=== PATIENT | female | born 1985 | race Two or more races ===

== ENCOUNTER → 2017-03-13 | Outpatient (CLI) | payer SELFPAY | END | disposition home or self-care (01) | LOC: RAD 10:00 | DX: O43.192 Other malformation of placenta, second trimester (principal); O28.3 Abnormal ultrasonic finding on antenatal screening of mother; Z3A.21 21 weeks gestation of pregnancy | CPT/HCPCS: 76811 ==

== ENCOUNTER 2017-07-21 05:38 | Inpatient (IN) | payer OTHER ==
[~2017-07-21] VITALS: Ht 157.5 cm; Wt 68.5 kg
[~2017-07-21 05:38] MED LIST: PRENATAL TABLE1 EACH PO
[2017-07-21 06:14] VITALS: BP 116/69
[2017-07-21 06:40] LABS: BASOPHIL (%) 0.3 % (0-1); EOSINOPHIL (%) 0.5 % (0-5); EOSINOPHIL COUNT 0.1 K/uL (0-0.3); HEMATOCRIT 31.2 % (36.0-46.0); IMMATURE GRANULOCYTE (%) 2.5 % (0.0-0.7); LYMPHOCYTE (%) 21.6 % (15-42); LYMPHOCYTE COUNT 2.4 K/uL (1.0-2.8); MCH 25.3 PG (29.0-34.0); MCHC 32.1 G/DL (30.0-36.0); MCV 78.8 FL (83-99); MONOCYTE (%) 9.1 % (3-12); NEUTROPHIL COUNT 7.4 K/uL (1.8-6.4); PLATELET COUNT 225 K/uL (156-360); RBC DIS.WIDTH-CV 13.8 % (11.8-14.6); RBC DIS.WIDTH-SD 39.2 % (39-53); RED BLOOD COUNT 3.96 M/uL (3.80-5.20); WHITE BLOOD COUNT 11.2 K/uL (4.1-10.2)
[2017-07-21 20:03] VITALS: BP 98/57
[2017-07-21 23:15] VITALS: BP 120/67
[2017-07-22 03:19] VITALS: BP 118/67
[2017-07-22 07:00] LABS: BASOPHIL (%) 0.1 % (0-1); EOSINOPHIL (%) 0.2 % (0-5); LYMPHOCYTE (%) 12.8 % (15-42); LYMPHOCYTE COUNT 1.9 K/uL (1.0-2.8); MCH 25.2 PG (29.0-34.0); MCHC 31.6 G/DL (30.0-36.0); MCV 79.6 FL (83-99); MONOCYTE COUNT 1.3 K/uL (0-0.8); NEUTROPHIL (%) 76.9 % (45-76); NEUTROPHIL COUNT 11.5 K/uL (1.8-6.4); NRBC (%) 0.1 /100 WBC (0-0); PLATELET COUNT 215 K/uL (156-360); RBC DIS.WIDTH-CV 13.9 % (11.8-14.6); RBC DIS.WIDTH-SD 40.2 % (39-53); WHITE BLOOD COUNT 14.9 K/uL (4.1-10.2)
[2017-07-22 07:11] LABS: HEMOGLOBIN 7.9 G/DL (11.9-15.5); RED BLOOD COUNT 3.14 M/uL (3.80-5.20)
[2017-07-22 07:13] VITALS: BP 111/61
[2017-07-22 10:53] VITALS: BP 118/61
[2017-07-22 15:24] VITALS: BP 108/59
[2017-07-22 19:54] VITALS: BP 112/65
[2017-07-23 03:46] VITALS: BP 99/53
[2017-07-23 07:24] VITALS: BP 103/61
[2017-07-23 12:17] VITALS: BP 127/57
[2017-07-23 14:47] VITALS: BP 117/56
[2017-07-24 08:32] VITALS: BP 104/59
[2017-07-24] MEDS ORDERED: IBUPROFEN800 MG PO (09:13)
[2017-07-24] MEDS ORDERED: FERROUS SULFAT325 MG PO (09:13)
[2017-07-24] MEDS ORDERED: NORCO 5/3251 TABLET PO (09:16)
== END 2017-07-24 16:00 | disposition home or self-care (01) | DRG 766 ==
LOC: 2WEST 05:38 → 2SOUTH 14:09 → 2WEST 07-24 16:00
PROVIDERS: Obstetrics & Gynecology
PROC: 10D00Z1 Extraction of Products of Conception, Low, Open Approach (ICD-10-PCS; principal; 2017-07-21)
DX: O34.211 Maternal care for low transverse scar from previous cesarean delivery (principal); O24.420 Gestational diabetes mellitus in childbirth, diet controlled; O99.02 Anemia complicating childbirth; D50.9 Iron deficiency anemia, unspecified; Z91.11 Patient's noncompliance with dietary regimen; Z3A.39 39 weeks gestation of pregnancy; Z37.0 Single live birth
CPT/HCPCS: 82948; 85025; 86850; 86900; 86901; 88307; J0690; J1885; J2250; J2274; J2405; J2590; J2765; J3010; J7120